=== PATIENT | male | born 1970 ===

== ENCOUNTER 2018-04-16 23:50 | Emergency (ER) | payer MEDICAID ==
[~2018-04-16] VITALS: Ht 177.8 cm; Wt 106.1 kg
[2018-04-17] MEDS ORDERED: LISI-167 PO (00:25)
[2018-04-17] MEDS ORDERED: NITROGLYCERIN SINGLE TAB 0.4 MG SL ONE (00:37)
[2018-04-17] MEDS ORDERED: ASPIRIN 81 MG TABLET CHEW ONE (00:38)
[2018-04-17] MEDS ORDERED: ASPIRIN 81 MG TABLET CHEW PO ONE (01:00)
[2018-04-17] MEDS ORDERED: ACETAMINOPHEN 325 MG TABLET PO ONE (01:00)
[2018-04-17] MEDS ORDERED: NITROGLYCERIN SINGLE TAB 0.4 MG SL PRN (01:00)
[2018-04-17 01:04] LABS: BASOPHILS # (AUTO) 0.05 x10^3/uL (0-0.1); BASOPHILS % (AUTO) 1 % (0-1); EOSINOPHILS # (AUTO) 0.22 x10^3/uL (0-0.4); EOSINOPHILS % (AUTO) 3 % (1-7); LYMPHOCYTES # (AUTO) 3.26 x10^3/uL (1-3.4); LYMPHOCYTES % (AUTO) 47 % (22-44); MD NO; MEAN CORPUSCULAR HGB CONC 33.8 g/dL (33.2-36.2); MEAN CORPUSCULAR VOLUME 88.9 fL (81-97); MEAN PLATELET VOLUME 8.4 fL (7.4-10.4); MONOCYTES # (AUTO) 0.39 x10^3/uL (0.2-0.8); MONOCYTES % (AUTO) 6 % (2-9); NEUTROPHILS % (AUTO) 44 % (42-75); PLATELET COUNT 291 x10^3/uL (130-400); RED BLOOD COUNT 5.62 x10^6/uL (4.38-5.82); RED CELL DISTRIBUTION WIDTH 14.6 % (9.4-14.8)
[2018-04-17 01:11] LABS: ALBUMIN 3.6 g/dL (3.4-5.0); ANION GAP 8 mmol/L (5-15); CHLORIDE 112 mmol/L (98-107); CREATININE 1.01 mg/dL (0.7-1.3)
[2018-04-17 01:15] LABS: TROPONIN I < 0.015 ng/mL (0.000-0.045)
[2018-04-17] MEDS ORDERED: ACETAMINOPHEN 325 MG TABLET ONE (01:47)
[2018-04-17 02:51] VITALS: BP 114/79
== END 2018-04-17 02:54 | disposition home or self-care (01) ==
LOC: ED 04-17 00:42
DX: R07.89 Other chest pain (principal); R06.02 Shortness of breath; I10 Essential (primary) hypertension
CPT/HCPCS: 36415; 71045; 80048; 82040; 84484; 85025; 93005; 99285

== ENCOUNTER 2019-12-06 22:53 | Emergency (ER) | payer MEDICAID ==
[~2019-12-06] VITALS: Ht 177.8 cm; Wt 69.0 kg
[~2019-12-06 22:53] MED LIST: LISI-167 PO
[2019-12-06 23:22] LABS: BASOPHILS # (AUTO) 0.05 x10^3/uL (0-0.1); BASOPHILS % (AUTO) 1 % (0-1); EOSINOPHILS # (AUTO) 0.15 x10^3/uL (0-0.4); EOSINOPHILS % (AUTO) 3 % (1-7); LYMPHOCYTES # (AUTO) 1.61 x10^3/uL (1-3.4); LYMPHOCYTES % (AUTO) 32 % (22-44); MD NO; MEAN CORPUSCULAR HEMOGLOBIN 31.8 pg (27.5-34.5); MEAN CORPUSCULAR HGB CONC 33.6 g/dL (33.2-36.2); MEAN CORPUSCULAR VOLUME 94.6 fL (81-97); MEAN PLATELET VOLUME 7.4 fL (7.4-10.4); MONOCYTES # (AUTO) 0.37 x10^3/uL (0.2-0.8); MONOCYTES % (AUTO) 7 % (2-9); NEUTROPHILS # (AUTO) 2.84 x10^3/uL (1.8-6.8); NEUTROPHILS % (AUTO) 57 % (42-75); PLATELET COUNT 239 x10^3/uL (130-400); RED BLOOD COUNT 5.25 x10^6/uL (4.38-5.82); RED CELL DISTRIBUTION WIDTH 15.5 % (9.4-14.8)
[2019-12-06 23:30] LABS: ANION GAP 10 mmol/L (5-15); CALCIUM 9.1 mg/dL (8.5-10.1); CHLORIDE 108 mmol/L (98-107)
--- NOTE | 2019-12-07 01:37 | NUR ---
PT RESTING ON GURNEY, NO ACUTE DISTRESS NOTED. VSS AND WILL CONT TO MONITOR. PT IS MTF.
--- NOTE | 2019-12-07 03:16 | NUR ---
Received report from Pinky HICKS.
--- NOTE | 2019-12-07 04:12 | NUR ---
Pt appears to be sleeping as evidenced by eyes closed, even breathing and snoring.
[2019-12-07 04:46] VITALS: BP 115/78
== END 2019-12-07 04:48 ==
LOC: ED 12-07 04:30
DX: S50.812A Abrasion of left forearm, initial encounter (principal); S50.811A Abrasion of right forearm, initial encounter; S80.812A Abrasion, left lower leg, initial encounter; S80.811A Abrasion, right lower leg, initial encounter; S60.512A Abrasion of left hand, initial encounter; F10.20 Alcohol dependence, uncomplicated; I10 Essential (primary) hypertension; Z72.9 Problem related to lifestyle, unspecified; Y90.9 Presence of alcohol in blood, level not specified; Y04.8XXA Assault by other bodily force, initial encounter; Y93.89 Activity, other specified; Y92.488 Other paved roadways as the place of occurrence of the external cause; Y99.8 Other external cause status
CPT/HCPCS: 36415; 80048; 80307; 83735; 85025; 99285

== ENCOUNTER 2019-12-17 15:28 | Emergency (ER) | payer MEDICAID ==
[~2019-12-17] VITALS: Ht 177.8 cm; Wt 84.0 kg
--- NOTE | 2019-12-17 15:49 | NUR ---
THIS IS A 49 YO MALE PT BIB [facility] AFTER BEING FOUND INTOXICATED IN PUBLIC. PER EMS PT HAD STATED "I WANT TO " TO THEM. PT DENIES HI OR SI TO RN HERE STATING "NAW, I JUST WANT TO SLEEP A LITTLE AND GO HOME. I DON'T WANT TO HURT NOBODY OR MYSELF. VALDEZ VALDEZ." FS 118. PT HAS STRONG ETOH ODOR AND SLURRED SPEECH. AWAKENS TO NAME BEING CALLED. CALL LIGHT WITHIN REACH. WILL CONT TO MONITOR PT.
--- NOTE | 2019-12-17 16:05 | NUR ---
RN ATTEMPTED TO HAVE PT PROVIDE URINAL. PT REFUSED AND STARTED SPEAKING IN SLURRED "[place]".
[2019-12-17 16:14] LABS: BASOPHILS # (AUTO) 0.05 x10^3/uL (0-0.1); BASOPHILS % (AUTO) 1 % (0-1); EOSINOPHILS # (AUTO) 0.12 x10^3/uL (0-0.4); EOSINOPHILS % (AUTO) 2 % (1-7); LYMPHOCYTES # (AUTO) 1.73 x10^3/uL (1-3.4); LYMPHOCYTES % (AUTO) 31 % (22-44); MD NO; MEAN CORPUSCULAR HEMOGLOBIN 32.4 pg (27.5-34.5); MEAN CORPUSCULAR HGB CONC 33.9 g/dL (33.2-36.2); MEAN CORPUSCULAR VOLUME 95.6 fL (81-97); MEAN PLATELET VOLUME 7.4 fL (7.4-10.4); MONOCYTES # (AUTO) 0.43 x10^3/uL (0.2-0.8); MONOCYTES % (AUTO) 8 % (2-9); NEUTROPHILS # (AUTO) 3.31 x10^3/uL (1.8-6.8); NEUTROPHILS % (AUTO) 59 % (42-75); PLATELET COUNT 217 x10^3/uL (130-400); RED BLOOD COUNT 4.68 x10^6/uL (4.38-5.82); RED CELL DISTRIBUTION WIDTH 15.3 % (9.4-14.8)
[2019-12-17 16:24] LABS: ALBUMIN 3.2 g/dL (3.4-5.0); ANION GAP 8 mmol/L (5-15); CALCIUM 7.8 mg/dL (8.5-10.1); CHLORIDE 115 mmol/L (98-107)
[2019-12-17 16:28] LABS: ALANINE AMINOTRANSFERASE 203 U/L (12-78); ALKALINE PHOSPHATASE 125 U/L (45-117); BILIRUBIN,TOTAL 0.2 mg/dL (0.2-1.0); CREATININE 1.25 mg/dL (0.7-1.3); TOTAL PROTEIN 7.4 g/dL (6.4-8.2)
[2019-12-17 16:32] LABS: SALICYLATE LEVEL < 1.7 mg/dL (2.8-20.0)
--- NOTE | 2019-12-17 17:00 | NUR ---
PT DOZING ON GURRAHEL. NO ACUTE DISTRESS NOTED. PT AWAKENS TO NAME BEING CALLED. WILL CONT TO MONITOR PT.
--- NOTE | 2019-12-17 18:21 | NUR ---
PT CURRENTLY SLEEPING ON GURNEY, SNORING. PT AWAKENS EASILY TO NAME BEING CALLED. CALL LIGHT WTIHIN REACH. WILL CONT TO MONITOR PT.
--- NOTE | 2019-12-17 18:55 | NUR ---
REPORT OF PT FROM FABIOLA DELGADO AND ASSUMING CARE OF PT AT THIS TIME.
--- NOTE | 2019-12-17 18:59 | NUR ---
REPORT TO FABIOLA ZIEGLER WHO ASSUMED CARE OF PT.
--- NOTE | 2019-12-17 19:22 | NUR ---
PT RESTING IN RNEY AND TOLERATING SIPS OF WATER WELL.
--- NOTE | 2019-12-17 20:18 | NUR ---
PT SLEEPING IN [facility] AT THIS TIME;
--- NOTE | 2019-12-17 20:39 | NUR ---
PT AMBULATES TO RESTROOM WITH STEADY GAIT TO VOID.
--- NOTE | 2019-12-17 21:59 | NUR ---
PT ASLEEP IN [facility] AT THIS TIME; MANUELN. VSS AT THIS TIME.
[2019-12-18 01:09] LABS: AMPHETAMINE SCREEN, URINE Positive (Negative); BARBITURATE SCREEN, URINE Negative (Negative); BENZODIAZEPINE SCREEN, URINE Negative (Negative); CANNABINOID SCREEN, URINE Negative (Negative); COCAINE SCREEN, URINE Negative (Negative); METHADONE SCREEN, URINE Negative (Negative); OPIATE SCREEN, URINE Negative (Negative)
--- NOTE | 2019-12-18 01:12 | NUR ---
PT ASLEEP IN [facility] AT THIS TIME; NADN. EQUAL BILATERAL RISE AND FALL OF CHEST NOTED DURING PT SLEEPING.
--- NOTE | 2019-12-18 01:20 | NUR ---
SLEPEING QUIETLY, RESP RATE EVEN AND REGULAR. AWAIT SOBRIETY FOR EFFECTIVE EVAL.
[2019-12-18 04:44] VITALS: BP 114/77
--- NOTE | 2019-12-18 07:00 | NUR ---
Report from Mayco HICKS. Care assumed. Pt resting in bed with eyes closed, resp even and unlabored, NADN. Room is secured, sitter within eyesight of pt, all safety measures observed.
--- NOTE | 2019-12-18 08:16 | NUR ---
Pt continues resting in bed, NADN. Meal tray ordered for pt.
--- NOTE | 2019-12-18 08:16 | NUR ---
Pt refusing to allow this RN to take pt's VS.
--- NOTE | 2019-12-18 08:49 | NUR ---
Called telepsych to follow up on result of eval. Per mud mixer operator they will fax the result now.
--- NOTE | 2019-12-18 08:55 | NUR ---
Telepsych report given to Dr. Richardson. Awaiting further orders. Pt continues resting in bed, resp even and unlabored, NADN.
[2019-12-18] MEDS ORDERED: ONDANSETRON ODT 4 MG ONE (09:28)
[2019-12-18] MEDS ORDERED: ONDANSETRON ODT 4 MG PO ONE (09:30)
--- NOTE | 2019-12-18 09:36 | NUR ---
TASK RN: CARE FOR DC ONLY PROVIDED. NO IV TO DC. PT MEDICATED ORDERED. ASKING FOR WATER. INSTRUCTED TO WAIT 15-20 MIN THEN SMALL SIPS OF WATER AT A TIME. REVIEWED DC INSTRUCTIONS WITH PT, UNDERSTANDING VERBALIZED. PT STATES, "SO I NEED TO ARRANGE A RIDE HOME" DISCUSSED WITH PT THAT HE DOES NEED TO ARRANGE HIS OWN RIDE. PT PROVIDED WITH [employer]. NO OTHER NEEDS EXPRESSED AT THIS TIME. PT LEFT AMB, GAIT STEADY.
== END 2019-12-18 09:39 | disposition home or self-care (01) ==
LOC: ED 17:08
DX: F33.9 Major depressive disorder, recurrent, unspecified (principal); F10.220 Alcohol dependence with intoxication, uncomplicated; R45.851 Suicidal ideations; R41.82 Altered mental status, unspecified; I10 Essential (primary) hypertension; Y90.9 Presence of alcohol in blood, level not specified
CPT/HCPCS: 36415; 80053; 80307; 85025; 99285; Q0162

== ENCOUNTER 2020-06-17 19:57 | Inpatient (IN) | payer MEDICAID ==
[~2020-06-17] VITALS: Ht 177.8 cm; Wt 91.8 kg
[2020-06-17] MEDS ORDERED: ONDANSETRON 2MG/ML, 2ML IVPush ONE (20:00)
[2020-06-17] MEDS ORDERED: SODIUM CHLORIDE 0.9% 1,000ML IVBOLUS ONE (20:00)
[2020-06-17] MEDS ORDERED: MORPHINE SULFATE 4 MG/ML, 1ML IVPush PRN (20:00)
[2020-06-17] MEDS ORDERED: SODIUM CHLORIDE FLUSH 10ML SYR IVF ONE (20:00)
[2020-06-17] MEDS ORDERED: MAGNESIUM SULFATE 1 GM, THIAMINE 100 MG, FOLIC ACID 1 MG in SODIUM CHLORIDE 0.9% 1,000 ML IV ONE (20:00)
--- NOTE | 2020-06-17 20:02 | NUR ---
TASK RN: [facility] [place]. PT HAS BEEN DRINKING ALL DAY. PT STATES DAUGHTER HUNG HERSELF 1 WK AGO. PT DENIES SI/HI. PT IS CHRONIC ETOH USER. PT ALSO HAS C/O ABD PAIN THROUGHOUT. VS JOGGER OPERATOR HR 128, 97% RA, BP 138/90. PT RESTING ON GURNEY. NADN. VSS. MONITORS APPLIED. PIV INITIATED. ERP DR. RAPHAEL AT BEDSIDE FOR EVAL. REPORT GIVEN TO PRIMARY RN.
--- NOTE | 2020-06-17 20:08 | NUR ---
TASK RN: YELLOW SLIP SENT TO PHARMACY FOR MEDS PER AUG.
[2020-06-17] MEDS ORDERED: ONDANSETRON 2MG/ML, 2ML ONE (20:09)
[2020-06-17 20:20] LABS: BASOPHILS % (AUTO) 3 % (0-1); EOSINOPHILS % (AUTO) 4 % (1-7); LYMPHOCYTES % (AUTO) 37 % (22-44); MEAN CORPUSCULAR HEMOGLOBIN 32.1 pg (27.5-34.5); MEAN CORPUSCULAR HGB CONC 33.7 g/dL (33.2-36.2); MEAN PLATELET VOLUME 7.4 fL (7.4-10.4); MONOCYTES % (AUTO) 11 % (2-9); NEUTROPHILS % (AUTO) 45 % (42-75); PLATELET COUNT 221 x10^3/uL (130-400); RED BLOOD COUNT 4.65 x10^6/uL (4.38-5.82)
[2020-06-17 20:25] LABS: MD NO
[2020-06-17 20:30] LABS: INTERNATIONAL NORMALIZED RATIO 0.94 (0.93-1.1)
[2020-06-17 20:32] LABS: ALANINE AMINOTRANSFERASE 204 U/L (12-78); ALBUMIN 3.7 g/dL (3.4-5.0); ANION GAP 10 mmol/L (5-15); CALCIUM 8.9 mg/dL (8.5-10.1); CHLORIDE 110 mmol/L (98-107); CREATININE 0.91 mg/dL (0.7-1.3)
[2020-06-17 20:34] LABS: ALKALINE PHOSPHATASE 165 U/L (45-117); BILIRUBIN,TOTAL 0.3 mg/dL (0.2-1.0); TOTAL PROTEIN 7.4 g/dL (6.4-8.2)
[2020-06-17 20:36] LABS: ACETONE, SERUM Negative (Negative)
--- NOTE | 2020-06-17 20:41 | NUR ---
PATIENT TO CT SCAN.
[2020-06-17] MEDS ORDERED: POTASSIUM CHLORIDE 40 MEQ in SODIUM CHLORIDE 0.9% 500 ML IV ONE (21:00)
[2020-06-17] MEDS ORDERED: ONDANSETRON ODT 4 MG PO PRN (22:00)
[2020-06-17] MEDS ORDERED: PANTOPRAZOLE 40 MG IV IVPush SCH (22:00)
[2020-06-17] MEDS ORDERED: PROMETHAZINE 25 MG/ML, 1ML IM PRN (22:00)
[2020-06-17] MEDS ORDERED: OXYcodone IR 5MG TABLET PO PRN (22:00)
[2020-06-17] MEDS ORDERED: POLYETHYLENE GLYCOL 17 GM PACKET PO PRN (22:00)
[2020-06-17] MEDS ORDERED: ONDANSETRON 2MG/ML, 2ML IVPush PRN (22:00)
[2020-06-17] MEDS ORDERED: LORazepam 1MG TABLET PO PRN ×2 (22:00)
[2020-06-17] MEDS ORDERED: morphine SULFATE 10 MG/ML, 1ML IVPush PRN (22:00)
[2020-06-17] MEDS ORDERED: hydrALAzine 20 MG/ML, 1ML IVPush PRN (22:00)
[2020-06-17] MEDS ORDERED: BISACODYL 10 MG SUPP PR PRN (22:00)
[2020-06-17] MEDS ORDERED: DOCUSATE 100 MG CAPSULE PO PRN (22:00)
[2020-06-17] MEDS ORDERED: SODIUM CHLORIDE 0.9% 1,000 ML IV SCH (22:00)
[2020-06-17] MEDS ORDERED: LORazepam 2 MG/ML, 1ML IV PRN ×4 (22:00)
--- NOTE | 2020-06-17 22:06 | NUR ---
REPORT CALLED TO FABIOLA RODGERS FOR TRANSFER PATIENT CARE.
[2020-06-17 22:23] VITALS: BP 94/59
--- NOTE | 2020-06-17 22:33 | NUR ---
PATIENT TRANSFERRED TO FLOOR VIA GURNEY WITH ED TECHS IN STABLE CONDITION, ALL PATIENT BELONGINGS GATHERED AND TAKEN TO THE FLOOR WITH PATIENT.
[2020-06-18 00:48] VITALS: BP 133/77
[2020-06-18 06:03] LABS: BASOPHILS % (AUTO) 4 % (0-1); EOSINOPHILS % (AUTO) 5 % (1-7); LYMPHOCYTES % (AUTO) 32 % (22-44); MEAN CORPUSCULAR HEMOGLOBIN 32.1 pg (27.5-34.5); MEAN CORPUSCULAR HGB CONC 33.8 g/dL (33.2-36.2); MEAN PLATELET VOLUME 7.6 fL (7.4-10.4); MONOCYTES % (AUTO) 9 % (2-9); NEUTROPHILS % (AUTO) 50 % (42-75); PLATELET COUNT 184 x10^3/uL (130-400); RED BLOOD COUNT 4.29 x10^6/uL (4.38-5.82); RED CELL DISTRIBUTION WIDTH 13.8 % (9.4-14.8)
[2020-06-18 06:05] LABS: MD NO
[2020-06-18 06:13] LABS: ALBUMIN 3.4 g/dL (3.4-5.0); ANION GAP 9 mmol/L (5-15); CALCIUM 7.9 mg/dL (8.5-10.1); CHLORIDE 111 mmol/L (98-107)
[2020-06-18 06:22] LABS: ALANINE AMINOTRANSFERASE 177 U/L (12-78); ALKALINE PHOSPHATASE 119 U/L (45-117); BILIRUBIN,TOTAL 0.4 mg/dL (0.2-1.0); CHOL/HDL RATIO 2.2; CHOLESTEROL, TOTAL 208 mg/dL (140-239); HDL CHOL % 46 % (26-37); HDL CHOLESTEROL (DIRECT) 95 mg/dL (40-60); LDL CHOLESTEROL,CALCULATED 97 mg/dL (54-169); TOTAL PROTEIN 6.8 g/dL (6.4-8.2); TRIGLYCERIDES 81 mg/dL (50-200); VLDL CHOLESTEROL 16 mg/dL (0-25)
[2020-06-18 06:51] VITALS: BP 125/79
[2020-06-18] MEDS: LACTULOSE 10 GM/15 ML UDC PO SCH ×2 (08:29→19:35)
[2020-06-18 13:05] VITALS: BP 148/94
[2020-06-18] MEDS: ESOMEPRAZOLE 40 MG IV IVPush SCH ×2 (14:02→19:35)
[2020-06-18] MEDS: LORazepam 1MG TABLET PO PRN (19:35)
[2020-06-18 19:43] VITALS: BP 144/79
[2020-06-18] MEDS ORDERED: OMNIPAQUE 350 MG/ML, 100ML BOTTLE ONE (21:00)
[2020-06-18] MEDS ORDERED: TRAZ-96 PO (23:26)
[2020-06-18] MEDS ORDERED: LISI-420 PO (23:26)
[2020-06-19 01:21] VITALS: BP 154/110
[2020-06-19] MEDS: LORazepam 1MG TABLET PO PRN ×3 (01:29→19:53)
[2020-06-19 08:14] VITALS: BP 146/104
[2020-06-19] MEDS: ESOMEPRAZOLE 40 MG IV IVPush SCH ×2 (08:18→20:37)
[2020-06-19] MEDS: LACTULOSE 10 GM/15 ML UDC PO SCH ×2 (08:18→20:37)
[2020-06-19] MEDS: LORazepam 2 MG/ML, 1ML IV PRN ×2 (08:25→12:28)
[2020-06-19] MEDS ORDERED: CHLORDIAZEPOXIDE 10 MG CAPSULE PO PRN (11:00)
[2020-06-19 12:12] VITALS: BP 142/98
[2020-06-19] MEDS: LORazepam 0.5MG TABLET PO PRN ×2 (17:21→22:55)
[2020-06-19 19:54] VITALS: BP 143/91
[2020-06-20 01:41] VITALS: BP 133/98
[2020-06-20] MEDS: LORazepam 1MG TABLET PO PRN ×2 (01:57→01:58)
== END 2020-06-20 03:50 | disposition left against medical advice (07) | DRG 282 ==
LOC: ED 21:34 → EDIP 22:01 → 3N 22:18
PROVIDERS: ADMIT Internal Medicine; ATTEND Internal Medicine
DX: K85.20 Alcohol induced acute pancreatitis without necrosis or infection (principal); K29.20 Alcoholic gastritis without bleeding; E87.6 Hypokalemia; F10.229 Alcohol dependence with intoxication, unspecified; F10.239 Alcohol dependence with withdrawal, unspecified; F17.210 Nicotine dependence, cigarettes, uncomplicated; F32.9 Major depressive disorder, single episode, unspecified; I10 Essential (primary) hypertension; K40.90 Unilateral inguinal hernia, without obstruction or gangrene, not specified as recurrent; K70.10 Alcoholic hepatitis without ascites; K72.90 Hepatic failure, unspecified without coma; K76.0 Fatty (change of) liver, not elsewhere classified; Z59.0 Homelessness; K29.00 Acute gastritis without bleeding
CPT/HCPCS: 36415; 74177; 80053; 80061; 80320; 82010; 83036; 83690; 83735; 84100; 84443; 85025; 85610; 96361; 96374; G0378; J2405; J3411; J3475; J3480; Q9967; C9113; G0480; J2060; J2270; J7030; J7040